=== PATIENT | female | born 1985 | race Hispanic/Latino ===

== ENCOUNTER → 2019-11-14 | Day surgery (SDC) | payer BC ==
[2019-11-10 14:56] LABS: BASOPHILS % 0.3 % (0.0-1.0); EOSINOPHILS % 0.3 % (0.0-6.0); HEMATOCRIT 37.4 % (34.2-44.1); HEMOGLOBIN 13.3 g/dL (12.0-16.0); LYMPHOCYTES # (AUTO) 0.8 (1.0-3.2); LYMPHOCYTES % 22.4 % (18.0-39.1); MEAN CORPUSCULAR HEMOGLOBIN 29.8 pg (28-32); MEAN CORPUSCULAR HGB CONC 35.6 g/dL (31-35); MEAN CORPUSCULAR VOLUME 83.9 fL (81-99); MONOCYTES # (AUTO) 0.4 (0.2-0.8); MONOCYTES % 10.3 % (4.4-11.3); NEUTROPHILS # (AUTO) 2.3 (2.1-6.9); NEUTROPHILS % 66.7 % (38.7-80.0); PLATELET COUNT 165 x10e3/uL (140-360); RED BLOOD COUNT 4.46 x10e6/uL (3.6-5.1); RED CELL DISTRIBUTION WIDTH 11.7 % (11.7-14.4)
[2019-11-10 15:14] LABS: ALANINE AMINOTRANSFERASE 42 IU/L (0-55); ALBUMIN 4.2 g/dL (3.5-5.0); ALBUMIN/GLOBULIN RATIO 1.2 (0.8-2.0); ALKALINE PHOSPHATASE 68 IU/L (40-150); ANION GAP 10.8 mmol/L (8-16); BLOOD UREA NITROGEN 9 mg/dL (7-26); BUN/CREATININE RATIO 14 (6-25); CALCIUM 9.3 mg/dL (8.4-10.2); CARBON DIOXIDE 26 mmol/L (22-29); CHLORIDE 106 mmol/L (98-107); CREATININE, SERUM 0.65 mg/dL (0.57-1.11); EST GLOMERULAR FILTRATION RATE > 60 ML/MIN (60-); GLUCOSE 83 mg/dL (74-118); POTASSIUM 3.8 mmol/L (3.5-5.1); SODIUM 139 mmol/L (136-145)
[~2019-11-14] MED LIST: AMITRIPTYLINE H50 MG PO; BUPIVACAINE HCL 0.5% INJ 30 ML VIAL INJ ONE; CEFAZOLIN SOD 1 GM/NS 50ML 100 ML IV ONE; DEXAMETHASONE SOD PHOS INJ 4 MG/ML VIAL ONE; DICLOFENAC POTA50 MG PO; ETOMIDATE 2 MG/ML 10 ML INJ IV ONE; FENTANYL CITRATE/PF 100MCG/2 ML INJ ONE; GLYCOPYRROLATE INJ 0.2 MG/ML VIAL ONE; HYDROMORPHONE 1MG/1ML INJ ONE; HYDROXYCHLOROQ200 MG PO; KETOROLAC TROMETHAMINE 30 MG/ML VIAL ONE; METOCLOPRAMIDE HCL 10 MG/2ML VIAL ONE; MIDAZOLAM HCL 2 MG/2 ML VIAL ONE; NEOSTIGMINE 1 MG/ML 10ML VIAL ONE; OMEPRAZOLE20 MG PO; ONDANSETRON HCL INJ 2MG/ML 2ML 2 MG/ML VIAL ONE; ROCURONIUM BROMIDE 10 MG/ML 5ML VIAL IV ONE; SALAGEN5 MG PO; SEVOFLURANE INHAL SOLN 250 ML PEN BTL ONE; VITAMIN D250 MC1 PO
--- OUTSIDE RECORDS SUMMARY | 2019-11-14 10:04 | XMS REPORT | Summary of Care ---
Author Author [facility] - Health Organization [facility] - Health Address Unknown Phone Unavailable Care Team Providers Care Cyber Crime Investigator Name Role Phone Jorge Alonzo PCP Reason for Visit * Reason Comments Refill Request Encounter Details Care Team Description Date Type Department Cm Enamorado MD [address] [facility] [id number] [place] [address] [phone] Refill Request 09/06/[address] [address] Allergies Comments Active Allergy Reactions Severity Noted Date Wheat Hives Medium 05/19/2019 documented as of this encounter (statuses as of 09/08/2019) Medications End Date Status Medication Sig Dispensed Refills Start Date Active levocetirizine 5 mg levocetirizin 0 tablet e 5 mg tablet Active levonorgestrel-ethinyl Kurvelo (28) 0 estradiol (KURVELO, 28,) 0.15 mg-0.03 0.15-0.03 mg per tablet mg tablet Active Diclofenac Sodium 100 mg prn 0 04/28 SR tablet 9 Active EPINEPHrine 0.3 mg/0.3 mL prn 0 injection Active AMITRIPTYLINE 25 mg TAKE 1 TABLET 30 tablet 1 08/17 tabletIndications: BY MOUTH 0 Retro-orbital pain of EVERY NIGHT both eyes, Numbness and AT BEDTIME tingling 09/08/2019 Discontinued amitriptyline 25 mg Take 1 tablet 30 tablet 2 tabletIndications: by mouth at 9 Retro-orbital pain of bedtime for both eyes, Numbness and 90 days. tingling documented as of this encounter (statuses as of 09/08/2019) Active Problems No known active problemsdocumented as of this encounter (statuses as of 09/08/2019) Social History Date Tobacco Use Types Packs/Day Years Used Never Smoker Smokeless Tobacco: Never Used Sex Assigned at Date Recorded Not on file Industry Job Start Date Occupation Not on file Not on file Not on file Travel End Travel History Travel Start No recent travel history available. documented as of this encounter Last Filed Vital Signs Not on filedocumented in this encounter Plan of Treatment Care Team Description Date Type Specialty Cm Enamorado MD [id number] [place] [address] [phone] 10/13/2019 Office Visit Neurology Health Maintenance Due Date Last Done Comments VARICELLA VACCINES (1 of 1988 2 - 2-dose childhood series) DTaP,Tdap,and Td Vaccines 1998 (1 - Tdap) PAP SMEAR 2008 INFLUENZA VACCINE (#1) 2019 PNEUMOCOCCAL 0-64 YEARS Aged Out No longer elig ible based COMBINED SERIES on patient's age to complete this topic documented as of this encounter Results Not on filedocumented in this encounter Visit Diagnoses Diagnosis Retro-orbital pain of both eyes Numbness and tingling Disturbance of skin sensation documented in this encounter Insurance Type Payer Benefit Subscriber ID Effective Phone Address Plan / Dates Group PPO/POS BCBS OF [place] BCBS OF [id number] 2017-P [phone] P [facility] [id number] OUT OF [facility] [id number] documented as of this encounter
--- OUTSIDE RECORDS SUMMARY | 2019-11-14 10:04 | XMS REPORT | Summary of Care ---
Author Author [facility] - Health Organization [facility] - Health Address Unknown Phone Unavailable Care Team Providers Care Pupil Personnel Services Director Name Role Phone Jorge Alonzo PCP Reason for Visit * Reason Comments TINGLING Encounter Details Care Team Description Date Type Department Cm Enamorado MD [address] [facility] [id number] [place] [address] [phone] Optic neuritis, left (Primary Dx); Numbness and tingling; Sicca syndrome; Retro-orbital pain of both eyes 10/13/2019 Telemedicine [facility] Neurolo gy, Visit [address] [address] Allergies Comments Active Allergy Reactions Severity Noted Date Wheat Hives Medium 05/19/2019 documented as of this encounter (statuses as of 10/13/2019) Medications End Date Status Medication Sig Dispensed Refills Start Date Active levocetirizine 5 mg levocetirizin 0 tablet e 5 mg tablet Active levonorgestrel-ethinyl Kurvelo (28) 0 estradiol (KURVELO, 28,) 0.15 mg-0.03 0.15-0.03 mg per tablet mg tablet Active Diclofenac Sodium 100 mg prn 0 04/28 SR tablet 9 Active EPINEPHrine 0.3 mg/0.3 mL prn 0 injection 04/10/2020 Active amitriptyline 50 mg Take 0.5 15 tablet 5 tabletIndications: tablets by 0 Retro-orbital pain of mouth at both eyes, Numbness and bedtime for tingling 180 days. 10/13/2019 Discontinued (Reorder) AMITRIPTYLINE 25 mg TAKE 1 TABLET 30 tablet 1 02/2 4/202 tabletIndications: BY MOUTH 0 Retro-orbital pain of EVERY NIGHT both eyes, Numbness and AT BEDTIME tingling documented as of this encounter (statuses as of 10/13/2019) Active Problems No known active problemsdocumented as of this encounter (statuses as of 10/13/2019) Social History Date Tobacco Use Types Packs/Day Years Used Never Smoker Smokeless Tobacco: Never Used Sex Assigned at Date Recorded Not on file Industry Job Start Date Occupation Not on file Not on file Not on file Travel End Travel History Travel Start No recent travel history available. documented as of this encounter Last Filed Vital Signs Not on filedocumented in this encounter Progress Notes * Cm Enamorado MD - 10/13/2019 2:00 PM CDT Visit Type: F/u clinic visit -- Telehealth Verbal consent was obtained and patient agreed with telehealth visit. Location: Patient -- home, and provider - Home PCP: Jorge Alonzo Hand Preference: right handed Consulting Physician: Dr. Brayan Vaca Chief Complaint: Paresthesia, and blurry vision HPI Patrizia Mackenzie is a 33 year old female with PMH below who presents to the in for f/u. Last seen in 06/2019. 05/2019: Patrizia Mackenzie is a 33 year old female without significant PMH who was referred to the clinic for evaluation of possible multiple sclerosis (MS). S tarting in 02/2019, she has experienced intermittent facial numbness, initially i n the let face and now it also presents in her right face (for about 1 week now) . She developed blurry vision in 03/2019, and sharp pain behind the left eye. She also c/o left arm burning sensation, and intermittent weakness. She saw Dr. Brayan Vaca in 03/2019, and Brain and Cervical spine MRI was done (04/16/2019) that did n ot show any demyelinating lesions. She saw receptionist telephone operator on 05/07/2019 ans was diagnosed with left optic neuritis. NMO, MOG and other autoimmune work-up were ordered, results are still pending. Denies dysphagia, bladder dysfunction or viola guage disturbance. Denies dry mouth, eye, joint pain or skin rashes. Her aunt an d cousin have lupus. She is , and has two children (10 and 6 year-old), and does not plan to have mor children. 06/2019 -- After her last visit, she had a spinal tap and again NMO antibody and CSF oligoclonal band panel were negative. She was recently diagnosed with lupus and Sjogren's disease, and started Plaquenil. She saw Dr. Aguilar and prescribed Diclofenac for eye pain. She has been taking it one week now and it has helped her pain if needed. Pt states that in addition to her left facial numbness , she also has right facial numbness, and more recently she began to have left arm/s houlder numbness, and then right arm and shoulder numbness. Also noticed tongue numbness started last week. Her retro-orbital pain has been worse, and it occurs almost daily now. Yesterday she had severe pain and last for several hours. She still see black spot in her left eye. Denies weakness, bladder symptoms. Since last visit, patient still has experienced intermittent facial numbness and blurry vision. The symptoms usually occurs about twice a month, and over the st one week she has increased frequency of events. Facial numbness/tingling now is located more in the right face. She was prescribed Amitriptyline, and feels i t might help her symptoms in some extent. I the past two week she also c/o right side weakness. Denies falling, ambulation difficulty etc. She saw ophthalmchoco matos in Jul 2019 and was told everything was normal except dry eyes. She went to ER last Sunday for back and rib area pain, and was diagnosed with UT I, and she was treated with three days antibiotics. She report no improvement ev en with Vicodin for her pain, and will see her PCP. She also c/o swallowing issu e, feels throat vibrating. She had endoscopy and swallowing this morning -- resu lt pending. Her last brain MRI was early 04/2019. Histories No past medical history on file. No family history on file. No family status information on file. No past surgical history on file. There is no problem list on file for this patient. Reviewed: family history , past medical history and social history Allergies Allergies Allergen Reactions Wheat Hives Medications Current Outpatient Medications Medication Sig Dispense Refill AMITRIPTYLINE 25 mg tablet TAKE 1 TABLET BY MOUTH EVERY NIGHT AT BEDTIME 30 tablet 1 Diclofenac Sodium 100 mg SR tablet prn EPINEPHrine 0.3 mg/0.3 mL injection prn levocetirizine 5 mg tablet levocetirizine 5 mg tablet levonorgestrel-ethinyl estradiol (ALEJANDRO, 28,) 0.15-0.03 mg per tablet Beka ott (28) 0.15 mg-0.03 mg tablet No current facility-administered medications for this visit. Review of Systems Constitutional: negative Eyes: blurry vision Ears: negative Nose/Sinuses: negative Mouth/Throat: negative Cardiovascular: negative Respiratory: negative Gastrointestinal: negative Genitourinary: negative Musculoskeletal: negative Integumentary: negative Psych: negative Endocrine: negative Heme/Lymph: negative Allergy/Immunization: negative Physical Exam There were no vitals taken for this visit. Level of Pain: 1. General: alert and oriented x 4 (person, place, date/time and situation); no cyrus arent distress Mental Status: normal Speech/ Language: normal Other PE are limited due to telemedicine setting Labs/Test CBC WBC (10*3/L) Date Value 05/26/2019 7.56 RBC (10*6/L) Date Value 05/26/2019 5.01 PLT (10*3/L) Date Value 05/26/2019 185 HGB (g/dL) Date Value 05/26/2019 14.9 HCT (%) Date Value 05/26/2019 42.4 BMP NA (mmol/L) Date Value 05/26/2019 139 K (mmol/L) Date Value 05/26/2019 4.0 CALCIUM (mg/dL) Date Value 05/26/2019 8.4 (L) CL (mmol/L) Date Value 05/26/2019 104 BUN (mg/dL) Date Value 05/26/2019 24 (H) CREATININE (mg/dL) Date Value 05/26/2019 0.59 GLUCOSE (mg/dL) Date Value 05/26/2019 95 CO2 TOTAL (mmol/L) Date Value 05/26/2019 28 Diagnostic Studies: EMG: None EEG: Normal by Dr. Brayan Vaca Imaging Studies: Reviewed: reports -- no lesions were found in brain and C-spine MRI Assessment/Plan Optic neuritis, left Comment: Clinically isolated syndrome. Still c/o intermittent facial numbness/ti ngling, and blurry vision. Last brain MRI was 04/2019. CSF NMO, Oligoclonal band were negative Plan: 1. Consider repeat brain MRI in 3-6 months. 2. Symptomatic treatment Sjogren's disease Comments: On Plaquenil Plan: 1. F/u with Fisheries Management Biologist 2. Plaquenil Tingling/numbness Comments: has some response to Amitriptyline 25 mg, QHS Plan: 1. Increase Amitriptyline 50 mg, QHS. RTC in 3 months This visit involved counseling and coordination of care that comprised more than 50% of the visit time. I spent 25 minute(s) total time with the patient. Of t hat time, 10 minute(s) was spent on history and exam, and 15 minute(s) was spent counseling the patient regarding risks and benefits of treatment, treatment opt ions and prevention. Description of Topics Counseled: Diagnostic criteria for MS, and CIS, and treatm ent options etc documented in this encounter Plan of Treatment Health Maintenance Due Date Last Done Comments [...] filedocumented in this encounter Visit Diagnoses Diagnosis Optic neuritis, left - Primary Optic neuritis, unspecified Numbness and tingling Disturbance of skin sensation Sicca syndrome Retro-orbital pain of both eyes documented in this encounter Insurance Type Payer Benefit Subscriber ID Effective Phone Address Plan / Dates Group PPO/POS BC[place] OF [place] BCBS OF [id number] 2017-P [phone] P [facility] [id number] OUT OF [facility] [id number] documented as of this encounter
--- OUTSIDE RECORDS SUMMARY | 2019-11-14 10:04 | XMS REPORT | Summary of Care ---
Author Author [facility] - Health Organization [facility] - Health Address Unknown Phone Unavailable Care Team Providers Care Business Applications Analyst Name Role Phone Jorge Alonzo PCP Reason for Visit * Reason Comments TINGLING Encounter Details Care Team Description Date Type Department Cm Enamorado MD [address] [facility] [id number] [place] [address] [phone] Optic neuritis, left (Primary Dx); Numbness and tingling; Sicca syndrome; Retro-orbital pain of both eyes 10/13/[address] [facility] Neurolo gy, Visit [address] [address] Allergies Comments Active Allergy Reactions [...] Visit Type: F/u clinic visit -- Telehealth PCP: Jorge Alonzo Hand Preference: right handed [...] ot show any demyelinating lesions. She saw white mixing operator on 05/07/2019 ans was diagnosed with [...] about twice a month, and over the one week she has increased frequency of [...] tablet levocetirizine 5 mg tablet levonorgestrel-ethinyl estradiol (KYRIEO, 28,) 0.15-0.03 mg per tablet Beka tru (28) 0.15 mg-0.03 mg tablet No current [...] Comments: On Plaquenil Plan: 1. F/u with Optical Instrument Repairer 2. Plaquenil Tingling/numbness Comments: has some response [...] Plan / Dates Group PPO/POS BCBS OF [place] BCBS OF [id number] 2017-P [phone] [address] [facility] [id number] OUT OF [facility] [address] [address] (Home) [place] [address] documented as of this encounter
--- OUTSIDE RECORDS SUMMARY | 2019-11-14 10:04 | XMS REPORT | Summary of Care ---
Author Author [facility] - Health Organization [facility] - Health Address Unknown Phone Unavailable Care Team Providers Care Cable Supervisor Name Role Phone Jorge Alonzo PCP Reason for Visit * Reason Comments Rx Concern/Question Encounter Details Care Team Description Date Type Department Cm Enamorado MD [address] [facility] [id number] [place] [address] [phone] Rx Concern/Question 10/16/2019 Telephone [facility], [address] [address] Allergies Comments Active Allergy Reactions Severity Noted Date Wheat Hives Medium 05/19/2019 documented as of this encounter (statuses as of 10/18/2019) Medications End Date Status Medication Sig Dispensed Refills Start Date Active levocetirizine 5 mg levocetirizin 0 tablet e 5 mg tablet Active levonorgestrel-ethinyl Kurvelo (28) 0 estradiol (KURVELO, 28,) 0.15 mg-0.03 0.15-0.03 mg per tablet mg tablet Active Diclofenac Sodium 100 mg prn 0 04/28 SR tablet 9 Active EPINEPHrine 0.3 mg/0.3 mL prn 0 injection Active amitriptyline 50 mg Take 1 tablet 30 tablet 5 tabletIndications: by mouth at 0 Retro-orbital pain of bedtime. both eyes, Numbness and tingling 10/17/2019 Discontinued (Dose adjustmen t) amitriptyline 50 mg Take 0.5 15 tablet 5 tabletIndications: tablets by 0 Retro-orbital pain of mouth at both eyes, Numbness and bedtime for tingling 180 days. 10/17/2019 Discontinued (Reorder) amitriptyline 50 mg Take 1 tablet 15 tablet 5 tabletIndications: by mouth. 0 Retro-orbital pain of both eyes, Numbness and tingling documented as of this encounter (statuses as of 10/18/2019) Active Problems No known active problemsdocumented as of this encounter (statuses as of 10/18/2019) Social History Date Tobacco Use Types Packs/Day [...] filedocumented in this encounter Plan of Treatment Health [...] PPO/POS BCBS OF [place] BCBS OF [id number] 2017-P [phone] P [address] [facility] [id number] OUT OF [facility] [id number] documented as of this encounter
--- OUTSIDE RECORDS SUMMARY | 2019-11-14 10:04 | XMS REPORT ---
Author Author [facility] t Organization [facility] Address Unknown Phone Unavailable Care Team Providers Care Hospitality Host Name Role Phone Unavailable Unavailable Payers Payer Name Policy Type Policy Number Effective Date Expiration D ate Problems This patient has no known problems. Allergies, Adverse Reactions, Alerts Allergy Name Allergy Type Status Severity Reaction(s) Onset Date Inacti ve Date Treating Clinician Comments No Known Allergies DA Active U 2019-05-25 00:00:00 No Known Allergies DA Active U 2013-06-06 00:00:00 Medications This patient has no known medications. Results Test Description Test Time Test Comments Text Results Atomic Results Result Comments - XR ESOPHAGUS 2019-10-13 12:39:00 FAX: Jorge Bridges MD [phone] [place]: St: [facility] FAX: Carroll Johnson MD [phone] Name: SHITAL APONTE [facility] : 1985 Age/S: 34/F [address] [place] [address] Unit #: [id number] Loc: [place] [address] Phys: Carroll Schumacher MD Acct: [id number] Dis Date: Status: REG CLI PHONE #: [phone] Exam Date: 10/13/2019 1041 FAX #: [phone] Reason: K59.01 CONSTIPATION, R13.10 DYSPHAGIA, K76.0 FA EXAMS: CPT CODE: [id number] XR ESOPHAGUS 60170 Patient Name: SHITAL APONTE : 1985; Age: 34 years y/o Female MR: [id number] Study: - XR ESOPHAGUS 10/13/2019 10:07 AM Ordering Physician: Carroll Schumacher MD Clinical Indication: K59.01 CONSTIPATION, R13.10 DYSPHAGIA, K76.0 FATTY LIVER Comparison: None TECHNIQUE AND FINDINGS: A routine barium esophagram was performed under fluoroscopic observation. Multiple spot images were obtained. Fluoroscopy time: 1.3 minutes Reference air kerma: 23.6 mGy Limitations: None. OROPHARYNX AND SWALLOWING: Morphology: Normal base of tongue, valleculae, and piriform sinuses. Swallowing: Normally initiated. Laryngeal penetration/aspiration: None. Pharyngoesophageal junction: Normal in appearance without narrowing or diverticulum. ESOPHAGUS: Morphology: Normal in course and caliber. Motility: Normal primary and secondary peristaltic waves. Mucosa: Normal without thickening, irregularity, or ulcer. Esophagogastric junction: Normal. Gastroesophageal reflux: Trace into distal third of the esophagus. STOMACH: Morphology: Normal degree of distention and shape. Mucosa: Normal appearing rugal folds. Gastroduodenal junction: Normal appearing pyloric channel without delayed emptying. IMPRESSION: PAGE 1 Signed Report (CONTINUED) FAX: Jorge Bridges MD [phone] [place]: St: REG FAX: Carroll Johnson MD [phone] Name: SHITAL APONTE [facility] : 1985 Age/S: 34/F [address] [place] [address] Unit #: [id number] Loc: [place] [address] Phys: Carroll Schumacher MD Acct: [id number] Dis Date: Status: REG CLI PHONE #: [phone] Exam Date: 10/13/2019 1041 FAX #: [phone] Reason: K59.01 CONSTIPATION, R13.10 DYSPHAGIA, K76.0 FA EXAMS: CPT CODE: [id number] XR ESOPHAGUS 06283 <Continued> Minimal gastroesophageal reflux. Otherwise, normal barium esophagram SL: [id number] at 1239 Reported and signed by: Gómez Bacon M.D. CC: Jorge Alonzo M.D.; Carroll Schumacher MD Technologist: RT Alfredo(R) Trnscrd Date/Time/By: 10/13/2019 (9043) : By: [email or web address] Orig Print D/T: S: 10/13/2019 (6567) PAGE 2 Signed Report - CT ABD PELVIS W/O CONT 2019-10-10 21:57:00 N jay: SHITAL APONTE [facility] : 1985 Age/S: 34 / F [address] [place] [address] Unit #: [id number] Loc: [place] [address] Phys: Mayra Yip MD Acct: [id number] Dis Date: Status: REG ER PHONE #: [phone] Exam Date: 10/10/2019 2130 FAX #: [phone] Reason: ACUTE R FLANK PAIN EXAMS: CPT CODE: [id number] CT ABD PELVIS W/O CONT 98721 CT abdomen and pelvis without contrast dated 10/10/2019 INDICATION: Acute right flank pain. COMPARISON: CT abdomen dated 05/25/2019. TECHNIQUE: A CT of the abdomen pelvis was performed using helical images from the thoracic outlet through the pubic symphysis with subsequent sagittal and coronal reconstruction. IV CONTRAST: None. GI CONTRAST: None. CT imaging performed at this location utilizes radiation dose optimizati on techniques which include one or more of the followin) Automated exposure control; 2) Adjustment of mA and/or kV; 3) Use of iterative reconstructive technique. CT radiation dose DLP (mGy-cm): 513. FINDINGS: SOLID ORGANS: There is no CT evidence of acute renal collecting system obstruction. No calcified renal or ureteral stones are identified. The kidneys are normal in size and contour. No acute edema or inflammation is identified in the perinephric fat. No acute CT abnormalities of the liver, spleen, pancreas or adrenal glands are identified. The low-density lesion visualized in the lateral segment of the left lobe of the liver on the CT of 05/25/2019 is not as well visualized without contrast however appears grossly stable in size. BILIARY: The gallbladder is normally distended. No significant biliary ductal dilatation is identified. BOWEL: Bowel assessment is limited by the absence of bowel contrast. No gross abnormalities of the stomach or duodenum are identified. No small bowel dilatation is present to suggest obstruction. The appendix is identified and is not acutely inflamed. There is no evidence of diverticular disease or inflammatory colonic wall thickening. PERITONEUM: There is no evidence of free intraperitoneal air or significant free intraperitoneal fluid. PAGE 1 Signed Report (CONTINUED) Name: SHITAL APONTE [facility] : 1985 Age/S: 34 / F [address] [place] [address] Unit #: [id number] Loc: [place] [address] Phys: Mayra Yip MD Acct: [id number] Dis Date: Status: REG ER PHONE #: [phone] Exam Date: 10/10/2019 213 FAX #: [phone] Reason: ACUTE R FLANK PAIN EXAMS: CPT CODE: [id number] CT ABD PELVIS W/O CONT 40757 <Continued> RETROPERITONEUM: The abdominal aorta is normal in caliber. The circumscribed fluid density structure in the aortocaval retroperitoneum at the L1-2 disc interspace level is of unclear etiology however appears stable when compared the preceding study. There is no additional evidence of retroperitoneal mass or adenopathy. PELVIS: No abnormalities of the ovaries or adnexa are identified. The bladder has an unremarkable appearance. LOWER CHEST: The lung bases appear clear of acute disease. ADDITIONAL FINDINGS: None. IMPRESSION: 1. No acute CT abnormalities of the abdomen or pelvis are detected. SL: 131 at 2156 Reported and signed by: Tapan Obrien M.D. CC: Mayra Yip MD; Jorge Alonzo M.D. Technologist:Quyen King RT(R) CTDI: DLP: Trnscb Date/Time: 10/10/2019 (2156) [email or web address] Orig Print D/T: S: 10/10/2019 (2199) PAGE 2 Signed Report UR HCG QUAL 2019-10-10 20:48:00 UR HCG QUAL (test code = HCGQLU) NEGATIVE NEGATIVE COMPREHENSIVE METABOLIC [id number] 20:47:00* Test Item Value Reference Range Comments SODIUM (test code = NA) 139 mEq/L 134-147 POTASSIUM (test code = K) 3.5 mEq/L 3.4-5.0 CHLORIDE (test code = CL) 107 mEq/L 100-108 CARBON DIOXIDE (test code = CO2) 28 mEq/L 21-33 ANION GAP (test code = GAP) 8 0-20 GLUCOSE (test code = GLU) 89 mg/dL 70-110 BLOOD UREA NITROGEN (test code = BUN) 17 mg/dL 7-18 GLOMERULAR FILTRATION RATE (test code = GFR) 97.0 105 -110 Units of measure = ml/min/1.73 m2 CREATININE (test code = CREAT) 0.7 mg/dL 0.6-1.3 TOTAL PROTEIN (test code = PROT) 8.0 g/dL 6.4-8.2 ALBUMIN (test code = ALB) 3.80 g/dL 3.4-5.0 CALCIUM (test code = CA) 9.1 mg/dL 8.0-10.5 BILIRUBIN TOTAL (test code = BILT) 0.3 MG/DL <1.5 SGOT/AST (test code = AST) 28 IUnit/L 15-37 SGPT/ALT (test code = ALT) 45 IUnit/L 15-65 ALKALINE PHOSPHATASE TOTAL (test code = ALKP) 72 IUnit/L 20 -125 [id number] 20:47:00* Test Item Value Reference Range Comments LIPASE (test code = LIP) 243 IUnit/L 73-393 COMPREHENSIVE METABOLIC [id number] 20:41:00* Test Item Value Reference Range Comments SODIUM (test code = NA) 139 mEq/L 134-147 POTASSIUM (test code = K) 3.5 mEq/L 3.4-5.0 CHLORIDE (test code = CL) 107 mEq/L 100-108 CARBON DIOXIDE (test code = CO2) 28 mEq/L 21-33 ANION GAP (test code = GAP) 8 0-20 GLUCOSE (test code = GLU) 89 mg/dL 70-110 BLOOD UREA NITROGEN (test code = BUN) 17 mg/dL 7-18 GLOMERULAR FILTRATION RATE (test code = GFR) 105 -110 CREATININE (test code = CREAT) mg/dL 0.6-1.3 TOTAL PROTEIN (test code = PROT) g/dL 6.4-8.2 ALBUMIN (test code = ALB) g/dL 3.4-5.0 CALCIUM (test code = CA) 9.1 mg/dL 8.0-10.5 BILIRUBIN TOTAL (test code = BILT) MG/DL <1.5 SGOT/AST (test code = AST) IUnit/L 15-37 SGPT/ALT (test code = ALT) IUnit/L 15-65 ALKALINE PHOSPHATASE TOTAL (test code = ALKP) IUnit/L 20 -125 [id number] 20:41:00* Test Item Value Reference Range Comments LIPASE (test code = LIP) 243 IUnit/L 73-393 CBC W/AUTO [id number] 20:32:00* Test Item Value Reference Range Comments WHITE BLOOD CELL (test code = WBC) 3.27 x10 3/uL 4.5-11.0 RED BLOOD CELL (test code = RBC) 4.55 x10 6/uL 3.54-5.02 HEMOGLOBIN (test code = HGB) 13.7 g/dL 11.0-15.0 HEMATOCRIT (test code = HCT) 39.0 % 33.0-45.0 MEAN CELL VOLUME (test code = MCV) 85.7 fL 81.0-99.0 MEAN CELL HGB (test code = MCH) 30.1 pg 27.0-33.0 MEAN CELL HGB CONCETRATION (test code = MCHC) 35.1 g/dL 33 .0-37.0 RED CELL DISTRIBUTION WIDTH CV (test code = RDW) 11.9 % 11.5-14.5 RED CELL DISTRIBUTION WIDTH SD (test code = RDW-SD) 37.4 fL 37.0-54.0 PLATELET COUNT (test code = PLT) 162 x10 3/uL 150-400 MEAN PLATELET VOLUME (test code = MPV) 11.2 fL 7.0-9.0 NEUTROPHIL % (test code = NT%) 61.2 % 56.0-77.0 IMMATURE GRANULOCYTE % (test code = IG%) 0.0 % 0.0-2.0 LYMPHOCYTE % (test code = LY%) 27.5 % 14.0-32.0 MONOCYTE % (test code = MO%) 10.7 % 4.8-9.0 EOSINOPHIL % (test code = EO%) 0.3 % 0.3-3.7 BASOPHIL % (test code = BA%) 0.3 % 0.0-2.0 NUCLEATED RBC % (test code = NRBC%) 0.0 % 0-0 NEUTROPHIL # (test code = NT#) 2.00 x10 3/uL 2.0-7.6 IMMATURE GRANULOCYTE # (test code = IG#) 0.00 x10 3/uL 0.00-0. 03 LYMPHOCYTE # (test code = LY#) 0.90 x10 3/uL 1.0-3.8 MONOCYTE # (test code = MO#) 0.35 x10 3/uL 0.1-0.8 EOSINOPHIL # (test code = EO#) 0.01 x10 3/uL 0.0-0.2 BASOPHIL # (test code = BA#) 0.01 x10 3/uL 0.0-0.2 NUCLEATED RBC # (test code = NRBC#) 0.00 x10 3/uL 0.0-0.1 MANUAL DIFF REQUIRED (test code = MDIFF) NO UA RFLX MICR CULT IF [id number] 19:34:00* Test Item Value Reference Range Comments UA COLOR (test code = COLU) YELLOW YEL/STRAW UA APPEARANCE (test code = APPU) CLEAR CLEAR UA GLUCOSE DIPSTICK (test code = DGLUU) NEGATIVE NEGATIVE UA BILIRUBIN DIPSTICK (test code = BILU) NEGATIVE NEGATIV E UA KETONE DIPSTICK (test code = KETU) NEGATIVE NEGATIVE UA SPECIFIC GRAVITY (test code = SGU) 1.009 1.005-1.03 0 UA BLOOD DIPSTICK (test code = ASHLEY) NEGATIVE NEGATIVE UA PH DIPSTICK (test code = CHEO) 7.0 5.0-7.0 UA PROTEIN DIPSTICK (test code = PROU) NEGATIVE NEGATIVE UA UROBILINIOGEN DIPSTICK (test code = URO) 0.2 mg/dL 0.2- 1.0 UA NITRITE DIPSTICK (test code = HARSHA) NEGATIVE NEGATIVE UA LEUKOCYTE ESTERASE DIPSTICK (test code = LEUU) TRACE NEGATIVE UA WBC (test code = WBCU) 4-9 WBC/HPF 0-3 UA RBC (test code = RBCU) 0-3 RBC/HPF 0-3 UA WBC NO REFLEX (test code = WBCUCL) 4-9 WBC/HPF 0-3 UA BACTERIA (test code = BACU) TRACE /HPF NONE SEEN UA SQUAMOUS CELLS (test code = SQU) 0-5 /HPF NONE SEEN UA MUCUS (test code = MUCU) TRACE /LPF NONE SEEN Indication for culture: Dysuria/FrequencySpecimen Description: CLEAN CATCH- CT ABD PELVIS [id number] 10:08:00 Name: SHITAL APONTE [facility] : 1985 Age/S: 33 / F [address] [place] [address] Unit #: [id number] Loc: [place] [address] Phys: Lula Sahni DO Acct: [id number] Dis Date: Status: REG ER PHONE #: [phone] Exam Date: 05/25/2019 0951 FAX #: [phone] Reason: LUQ abdominal pain EXAMS: CPT CODE: [id number] CT ABD PELVIS W/CONT [address] with contrast: Multiplanar helical imaging acquired from the diaphragm through the symphysis pubis using IV injection 100 cc Isovue-300. No oral contrast. CT imaging performed at this location utilizes radiation dose optimization techniques which include one or more of the following: -Automated exposure control -Adjustment of the mA and/or kV according to patient size -Use of iterative reconstruction technique CT Radiation Dose DLP 262 mGy-cm COMPARISON: 03/17/2013. HISTORY: Nausea and vomiting, diarrhea and fever, left upper quadrant abdominal pain FINDINGS: Bilateral breast implants are again noted. Minor left lung base atelectasis. Slightly decreased density in the liver suggesting fatty infiltration. In the dome of the liver left hepatic lobe there is a 11 mm low-density lesion that has an area of nodular peripheral enhancement likely an incidental hemangioma. No other focal lesion. Biliary ducts, gallbladder, spleen, pancreas and adrenal glands unremarkable. The a bdominal aorta is normal caliber without an aneurysm. The kidneys symmetri anup enhance without mass or hydronephrosis. Uterus, bladde r and adnexal structures are unremarkable. Large and small bowel loops are normal caliber. No bowel obstruction or inflamed segments. No evidence of diverticulitis or appendicitis. No fluid collections. No ventral or ingui nal hernia. Review on bone window shows no acute bony pathology. N o vertebral compression. IMPRESSION: 1. Mild fatty infiltration of liver with probable incidental left hepatic lobe gisella ioma. 2. No acute abnormality in the abdomen or pelvis. SL: [id number] PAGE 1 Sign ed Report (CONTINUED) Name: SHITAL APONTE [facility] : 1985 Age/S: 33 / F [address] [place] [address] Unit #: [id number] Loc: [place] [address] Phys: Lula Sahni DO Acct: [id number] Dis Date: Status: REG ER PHONE #: [phone] Exam Date: 05/25/2019 0951 FAX #: [phone] Reason: LUQ abdominal pain EXAMS: CPT CODE: [id number] CT ABD PELVIS W/CONT 16301 <Continued> at 1008 Reported and signed by: Juju Turcios M.D. CC: Lula Sahni DO; Jorge Alonzo M.D. Technologist:RT Luis Antonio(R)(CT) CTDI: DLP: Trnscb Date/Time: 05/25/2019 (1008) [email or web address] Orig Print D/T: S: 05/25/2019 (1011) PAGE 2 Signed Report UA RFLX MICR CULT IF INDICATED 2019-05-25 09:35:00* Test Item Value Reference Range Comments UA COLOR (test code = COLU) YELLOW YEL/STRAW UA APPEARANCE (test code = APPU) CLEAR CLEAR UA GLUCOSE DIPSTICK (test code = DGLUU) NEGATIVE NEGATIVE UA BILIRUBIN DIPSTICK (test code = BILU) NEGATIVE NEGATIV E UA KETONE DIPSTICK (test code = KETU) NEGATIVE NEGATIVE UA SPECIFIC GRAVITY (test code = SGU) 1.019 1.005-1.03 0 UA BLOOD DIPSTICK (test code = ASHLEY) NEGATIVE NEGATIVE UA PH DIPSTICK (test code = CHEO) 7.0 5.0-7.0 UA PROTEIN DIPSTICK (test code = PROU) NEGATIVE NEGATIVE UA UROBILINIOGEN DIPSTICK (test code = URO) 0.2 mg/dL 0.2- 1.0 UA NITRITE DIPSTICK (test code = HARSHA) NEGATIVE NEGATIVE UA LEUKOCYTE ESTERASE DIPSTICK (test code = LEUU) NEGATIVE NEGATIVE UA WBC (test code = WBCU) 0-3 WBC/HPF 0-3 UA RBC (test code = RBCU) 0-3 RBC/HPF 0-3 UA WBC NO REFLEX (test code = WBCUCL) 0-3 WBC/HPF 0-3 UA BACTERIA (test code = BACU) TRACE /HPF NONE SEEN UA SQUAMOUS CELLS (test code = SQU) 0-5 /HPF NONE SEEN UA MUCUS (test code = MUCU) TRACE /LPF NONE SEEN Indication for culture: Suprapubic PainSpecimen Description: CLEAN CATCH COMPREHENSIVE METABOLIC [id number] 08:44:00* Test Item Value Reference Range Comments SODIUM (test code = NA) 139 mEq/L 134-147 POTASSIUM (test code = K) 3.8 mEq/L 3.4-5.0 CHLORIDE (test code = CL) 105 mEq/L 100-108 CARBON DIOXIDE (test code = CO2) 25 mEq/L 21-33 ANION GAP (test code = GAP) 13 0-20 GLUCOSE (test code = GLU) 124 mg/dL 70-110 BLOOD UREA NITROGEN (test code = BUN) 20 mg/dL 7-18 GLOMERULAR FILTRATION RATE (test code = GFR) 97.6 105 -110 Units of measure = ml/min/1.73 m2 CREATININE (test code = CREAT) 0.7 mg/dL 0.6-1.3 TOTAL PROTEIN (test code = PROT) 7.3 g/dL 6.4-8.2 ALBUMIN (test code = ALB) 3.10 g/dL 3.4-5.0 CALCIUM (test code = CA) 8.5 mg/dL 8.0-10.5 BILIRUBIN TOTAL (test code = BILT) 0.6 MG/DL <1.5 SGOT/AST (test code = AST) 7 IUnit/L 15-37 SGPT/ALT (test code = ALT) 21 IUnit/L 15-65 ALKALINE PHOSPHATASE TOTAL (test code = ALKP) 47 IUnit/L 20 -125 [id number] 08:44:00* Test Item Value Reference Range Comments LIPASE (test code = LIP) 162 IUnit/L 73-393 HCG SERUM [id number] 08:44:00* Test Item Value Reference Range Comments HCG SERUM QUAL (test code = HCGQL) SERUM NEGATIVE NEGATIVE COMPREHENSIVE METABOLIC [id number] 08:39:00* Test Item Value Reference Range Comments SODIUM (test code = NA) 139 mEq/L 134-147 POTASSIUM (test code = K) 3.8 mEq/L 3.4-5.0 CHLORIDE (test code = CL) 105 mEq/L 100-108 CARBON DIOXIDE (test code = CO2) 25 mEq/L 21-33 ANION GAP (test code = GAP) 13 0-20 GLUCOSE (test code = GLU) 124 mg/dL 70-110 BLOOD UREA NITROGEN (test code = BUN) 20 mg/dL 7-18 GLOMERULAR FILTRATION RATE (test code = GFR) 105 -110 CREATININE (test code = CREAT) mg/dL 0.6-1.3 TOTAL PROTEIN (test code = PROT) g/dL 6.4-8.2 ALBUMIN (test code = ALB) g/dL 3.4-5.0 CALCIUM (test code = CA) 8.5 mg/dL 8.0-10.5 BILIRUBIN TOTAL (test code = BILT) MG/DL <1.5 SGOT/AST (test code = AST) IUnit/L 15-37 SGPT/ALT (test code = ALT) IUnit/L 15-65 ALKALINE PHOSPHATASE TOTAL (test code = ALKP) IUnit/L 20 -125 [id number] 08:39:00* Test Item Value Reference Range Comments LIPASE (test code = LIP) 162 IUnit/L 73-393 HCG SERUM [id number] 08:39:00* Test Item Value Reference Range Comments HCG SERUM QUAL (test code = HCGQL) SERUM NEGATIVE NEGATIVE COMPREHENSIVE METABOLIC [id number] 08:38:00* Test Item Value Reference Range Comments SODIUM (test code = NA) 139 mEq/L 134-147 POTASSIUM (test code = K) 3.8 mEq/L 3.4-5.0 CHLORIDE (test code = CL) 105 mEq/L 100-108 CARBON DIOXIDE (test code = CO2) 25 mEq/L 21-33 ANION GAP (test code = GAP) 13 0-20 GLUCOSE (test code = GLU) 124 mg/dL 70-110 BLOOD UREA NITROGEN (test code = BUN) 20 mg/dL 7-18 GLOMERULAR FILTRATION RATE (test code = GFR) 105 -110 CREATININE (test code = CREAT) mg/dL 0.6-1.3 TOTAL PROTEIN (test code = PROT) g/dL 6.4-8.2 ALBUMIN (test code = ALB) g/dL 3.4-5.0 CALCIUM (test code = CA) 8.5 mg/dL 8.0-10.5 BILIRUBIN TOTAL (test code = BILT) MG/DL <1.5 SGOT/AST (test code = AST) IUnit/L 15-37 SGPT/ALT (test code = ALT) IUnit/L 15-65 ALKALINE PHOSPHATASE TOTAL (test code = ALKP) IUnit/L 20 -125 [id number] 08:38:00* Test Item Value Reference Range Comments LIPASE (test code = LIP) 162 IUnit/L 73-393 HCG SERUM [id number] 08:38:00* Test Item Value Reference Range Comments HCG SERUM QUAL (test code = HCGQL) NEGATIVE COMPREHENSIVE METABOLIC [id number] 08:34:00* Test Item Value Reference Range Comments SODIUM (test code = NA) 139 mEq/L 134-147 POTASSIUM (test code = K) 3.8 mEq/L 3.4-5.0 CHLORIDE (test code = CL) 105 mEq/L 100-108 CARBON DIOXIDE (test code = CO2) mEq/L 21-33 ANION GAP (test code = GAP) 0-20 GLUCOSE (test code = GLU) mg/dL 70-110 BLOOD UREA NITROGEN (test code = BUN) mg/dL 7-18 GLOMERULAR FILTRATION RATE (test code = GFR) 105 -110 CREATININE (test code = CREAT) mg/dL 0.6-1.3 TOTAL PROTEIN (test code = PROT) g/dL 6.4-8.2 ALBUMIN (test code = ALB) g/dL 3.4-5.0 CALCIUM (test code = CA) mg/dL 8.0-10.5 BILIRUBIN TOTAL (test code = BILT) MG/DL <1.5 SGOT/AST (test code = AST) IUnit/L 15-37 SGPT/ALT (test code = ALT) IUnit/L 15-65 ALKALINE PHOSPHATASE TOTAL (test code = ALKP) IUnit/L 20 -125 [id number] 08:34:00* Test Item Value Reference Range Comments LIPASE (test code = LIP) IUnit/L 73-393 HCG SERUM [id number] 08:34:00* Test Item Value Reference Range Comments HCG SERUM QUAL (test code = HCGQL) NEGATIVE CBC W/AUTO [id number] 08:32:00* Test Item Value Reference Range Comments WHITE BLOOD CELL (test code = WBC) 3.66 x10 3/uL 4.5-11.0 RED BLOOD CELL (test code = RBC) 4.38 x10 6/uL 3.54-5.02 HEMOGLOBIN (test code = HGB) 13.2 g/dL 11.0-15.0 HEMATOCRIT (test code = HCT) 37.1 % 33.0-45.0 MEAN CELL VOLUME (test code = MCV) 84.7 fL 81.0-99.0 MEAN CELL HGB (test code = MCH) 30.1 pg 27.0-33.0 MEAN CELL HGB CONCETRATION (test code = MCHC) 35.6 g/dL 33 .0-37.0 RED CELL DISTRIBUTION WIDTH CV (test code = RDW) 11.6 % 11.5-14.5 RED CELL DISTRIBUTION WIDTH SD (test code = RDW-SD) 35.6 fL 37.0-54.0 PLATELET COUNT (test code = PLT) 173 x10 3/uL 150-400 MEAN PLATELET VOLUME (test code = MPV) 11.4 fL 7.0-9.0 NEUTROPHIL % (test code = NT%) 81.2 % 56.0-77.0 IMMATURE GRANULOCYTE % (test code = IG%) 0.5 % 0.0-2.0 LYMPHOCYTE % (test code = LY%) 15.3 % 14.0-32.0 MONOCYTE % (test code = MO%) 3.0 % 4.8-9.0 EOSINOPHIL % (test code = EO%) 0.0 % 0.3-3.7 BASOPHIL % (test code = BA%) 0.0 % 0.0-2.0 NUCLEATED RBC % (test code = NRBC%) 0.0 % 0-0 NEUTROPHIL # (test code = NT#) 2.97 x10 3/uL 2.0-7.6 IMMATURE GRANULOCYTE # (test code = IG#) 0.02 x10 3/uL 0.00-0. 03 LYMPHOCYTE # (test code = LY#) 0.56 x10 3/uL 1.0-3.8 MONOCYTE # (test code = MO#) 0.11 x10 3/uL 0.1-0.8 EOSINOPHIL # (test code = EO#) 0.00 x10 3/uL 0.0-0.2 BASOPHIL # (test code = BA#) 0.00 x10 3/uL 0.0-0.2 NUCLEATED RBC # (test code = NRBC#) 0.00 x10 3/uL 0.0-0.1 MANUAL DIFF REQUIRED (test code = MDIFF) NO - MRI C-SPINE W W/O [id number] 21:49:00 FAX: Edvin Mi MD [phone] [place]: St: [facility] FAX: Jorge Bridges MD [phone] Name: SHITAL APONTE [facility] : 1985 Age/S: 33/F [address] [place] [address] Unit #: [id number] Loc: [place] [address] Phys: Edvin Leonard MD Acct: [id number] Dis Date: Status: REG CLI PHONE #: [phone] Exam Date: 04/16/20192109 FAX #: [phone] Reason: MS EXAMS: CPT CODE: [id number] MRI C-SPINE W W/O CONT 67043 Patient Name: SHITAL APONTE : 1985; Age: 33 years y/o Female MR: [id number] Study: - MRI C-SPINE W W/O CONT 04/16/2019 5:29 PM Ordering Physician: MD Renita Randall linical Indication: Left facial weakness and left extremity pain MS Compar shane: None TECHNIQUE: Multiplanar T1, T2, STIR weighted and postco ntrast MRI of the cervical spine is performed on the 1.5 Tanya magnet. Contrast: Dotarem 13 mL FINDINGS: ALIGN MENT AND GENERAL ASSESSMENT: Straightening of the normal cervical lordosis may be positional in nature. Mildly degenerated discs within the ce rvical spine. No abnormal enhancement. DISC SPACES: C2-C3:No significant disc protrusion, spinal canal narrowing, or suresh ral foraminal narrowing. C3-C4: No significant disc protrusion, sp inal canal narrowing, or neural foraminal narrowing. C4-C5: No significant disc protrusion, spinal canal narrowing, or neural foramina l narrowing. C5-C6: No significant disc protrusion, spinal canal n arrowing, or neural foraminal narrowing. C6-C7:No significan t disc protrusion, spinal canal narrowing, or neural foraminal narrowing. C7-T1: No significant disc protrusion, spinal canal narrowing, or neural foraminal narrowing. PAGE 1 Signed Report (CONTINUED) FAX: Edvin Mi MD [phone] [place]: St: REG FAX: Jorge Bridges MD -------- Name: SHITAL APONTE [facility] [place] : 1985 Age/S: 33/F [address] [place] [address] Unit #: [id number] Loc: [place] [address] Phys: Edvin Leonard MD Acct: [id number] Dis Date: Status: REG CLI CEFERINO NE #: [phone] Exam Date: 04/16/20192109 FAX #: [phone] Reason: MS Gonzalez XAMS: CPT CODE: [id number] MRI C-SPINE W W/O CONT 49469 <Continued> IMPRESSION: Negative MRI of the cervical spine. SL: AP-H at 2148 Reported and signed by: Gómez Bacon M.D. CC: Edvin Vaca MD; Jorge Alonzo M.D. Technologist: MADELINE Hernadez)(MRI) Trnscrd Date/Time/By: 04/16/2019 (2148) : By: [email or web address] Orig Print D/T: S: 04/16/2019 (2151) PAGE 2 Signed Report - MRI BRAIN WO/W [id number] 21:41:00 FAX: Edvin Mi MD [phone] [place]: St: REG FAX: Jorge Bridges MD [phone] Name: SHITAL APONTE [facility] [place] : 1985 Age/S: 33/F [address] [place] [address] Unit #: [id number] Loc: [place] [address] Phys: Edvin Leonard MD Acct: [id number] Dis Date: Status: REG CLI PHONE #: [phone] Exam Date: 04/16/20192109 FAX #: [phone] Reason: MS EXAMS: CPT CODE: [id number] MRI BRAIN WO/W CONT 81532 Study: - MRI BRAIN WO/W CONT 04/16/2019 5:29 PM Moi lyons Name: SHITAL APONTE MR: [id number] : 1985; Age: 33 years y/o Female Ordering Physician: Edvin Vaca MD Clinical I ndication: Left facial numbness, left extremity pain and blurred vision MS Comparison: None TECHNIQUE: TECHNIQUE: Multiplanar precontrast and postcontrast MRI of the brain was performed on a 1.5 Tanya magnet. Contrast: Dotarem 13 mL FINDINGS: BRAIN PARENCHYMA: General: The brain volume and ventricle size are appropriate for age. Ventricles: Normal size and appearance. Enhancement: No abnormal enhancement. Acute Findings: No evidence of acute intracranial hemorrhage, mass, mass effect, midline shift, or extra-axial fluid collection. Diffusion Weighted Images: No evidence of restricted diffusion to suggest acute or subacute ischemia. Gradient Images: No abnormal hypointense signal to suggest old hemorrhage. Midline Structures: The pituitary gland, corpus callosum, and remaining midline structures are normal. VASCULATURE: Arterial: The major intracranial arterial flow voids are p resent. Venous: The dural venous sinus flow voids are grossly normal. PARANASAL SINUSES: The visualized portions of the paranasal sinuses PAGE 1 Signed Report (CONTINUED) FAX: Edvin Mi MD [phone] [place]: St: REG FAX: Jorge Bridges MD [phone] Name: SHITAL APONTE [facility] : 1985 Age/S: 33/F [address] Unit #: [id number] Loc: G.MRI [place], [place] [address]98 Phys: Edvin Leonard MD Acct: [id number] Dis Date: Status: REG CLI PHONE #: [phone] Exam Date: 04/16/20192109 FAX #: [phone] Reason: MS EXAMS: CPT CODE: [id number] MRI BRAIN WO/W CONT 19475 <Continued> are clear. MASTOIDS: Clear. SOFT TISSUES AND ORBITS: Multiple tiny cysts in the bilateral parotid glands are nonspecific. Otherwise, the visualized portions are normal. IMPRESSION: 1. No acute stroke, hemorrhage, mass, or mass effect. No intracranial demyelinating plaques to suggest multiple sclerosis 2. Nonspecific cystic changes in the bilateral parotid glands. SL: RAFAELA at 2140 Reported and signed by: Gómez Bacon M.D. CC: Edvin Vaca MD; Jorge Alonzo M.D. Technologist: RT Maricarmen(R)(MRI) Trnscrd Date/Time/By: 04/16/2019 (2140) : By: [email or web address] Orig Print D/T: S: 04/16/2019 (2143) PAGE 2 Signed Report
[2019-11-14 15:15] VITALS: BP 130/88
--- NOTE | 2019-11-14 20:50 | Operative Report ---
DATE OF PROCEDURE: 11/14/2019 SURGEON: Jorge Coelho MD PREOPERATIVE DIAGNOSIS: Chronic cholecystitis. POSTOPERATIVE DIAGNOSIS: Chronic cholecystitis. PROCEDURES: Diagnostic laparoscopy, laparoscopic cholecystectomy. ACOUSTICAL LOGGING ENGINEER: None. ANESTHESIA: General endotracheal. INDICATIONS AND FINDINGS: The patient is a 34-year-old female who presented with recurrent episodes of right upper quadrant abdominal pain. Workup revealed abnormal HIDA scan, low ejection fraction of 25%, and reproduction of her pain. Surgery based on the gallbladder with changes of cholesterolosis. Cystic duct was about 2 mm in diameter, common bile duct was about 5 mm in diameter. Liver, stomach, lower abdomen all appeared normal. TECHNIQUE: After adequate general endotracheal anesthesia, the patient in supine position, the abdomen was prepped and draped in sterile fashion with ChloraPrep solution. Skin just below the umbilicus was infiltrated with 0.5% Marcaine. Incision was made, abdominal wall was elevated, and Veress needle was introduced. Pneumoperitoneum was then created. A 10 mm trocar and cannula was then passed through this wound. Laparoscopic camera was introduced. Initial laparoscopy revealed liver, stomach, and lower abdomen all appeared normal. A 10 mm trocar and cannula was placed in the epigastrium, and two 5 mm trocars and cannulas were placed in right upper quadrant. These were placed under direct vision. Fundus of the gallbladder was grasped, retracted superiorly. Neck of the gallbladder was grasped, retracted laterally. The peritoneum over the neck of the gallbladder was incised. The gallbladder and cystic duct junction was dissected free. Cystic artery was also dissected free. The neck of the gallbladder was completely dissected free. Cystic artery was divided between hemoclips close to the gallbladder. Cystic duct was also divided between hemoclips with three clips being left on the common bile duct side. There was a posterior branch of cystic artery, which was also divided between hemoclips. The gallbladder was dissected free from the liver using scissors and electrocautery. Once it was entirely free, it was placed into an Endopouch and brought through the epigastric cannula. There were no stones palpable. Gallbladder bed was inspected for hemostasis, which was seen to be adequate. It was irrigated with saline. All fluid aspirated and inspected once again for hemostasis, which was seen to be adequate. Instruments and cannulas were then removed. Pneumoperitoneum was evacuated. Wounds were then closed. Fascia in the umbilical and epigastric wound closed with 0 Vicryl. Skin to all wounds closed with brian. Sterile dressings applied to each wound. The patient tolerated the procedure well. Estimated blood loss was 10 mL. There were no complications. All counts were correct. The patient was taken to the recovery room in satisfactory condition. MD NOLAN Mann/NEEMA /[id number] cc: Jorge Alonzo
== END | disposition home or self-care (01) ==
LOC: OR 09:50
PROVIDERS: ATTEND Surgery
DX: K81.1 Chronic cholecystitis (principal); R59.1 Generalized enlarged lymph nodes; M32.9 Systemic lupus erythematosus, unspecified; Z01.812 Encounter for preprocedural laboratory examination; Z11.59 Encounter for screening for other viral diseases
CPT/HCPCS: 36415; 47562; 80053; 81025; 84702; 85025; 87635; 88304; J0690; J1100; J1170; J1885; J2250; J2405; J2710; J2765; J3010

== ENCOUNTER 2020-09-06 12:12 | Emergency (ER) | payer BC ==
[~2020-09-06] VITALS: Ht 154.9 cm; Wt 66.7 kg
[~2020-09-06 12:12] MED LIST changes: -BUPIVACAINE HCL 0.5% INJ 30 ML VIAL INJ ONE; -CEFAZOLIN SOD 1 GM/NS 50ML 100 ML IV ONE; -DEXAMETHASONE SOD PHOS INJ 4 MG/ML VIAL ONE; -ETOMIDATE 2 MG/ML 10 ML INJ IV ONE; -FENTANYL CITRATE/PF 100MCG/2 ML INJ ONE; -GLYCOPYRROLATE INJ 0.2 MG/ML VIAL ONE; -HYDROMORPHONE 1MG/1ML INJ ONE; -KETOROLAC TROMETHAMINE 30 MG/ML VIAL ONE; -METOCLOPRAMIDE HCL 10 MG/2ML VIAL ONE; -MIDAZOLAM HCL 2 MG/2 ML VIAL ONE; -NEOSTIGMINE 1 MG/ML 10ML VIAL ONE; -ONDANSETRON HCL INJ 2MG/ML 2ML 2 MG/ML VIAL ONE; -ROCURONIUM BROMIDE 10 MG/ML 5ML VIAL IV ONE; -SEVOFLURANE INHAL SOLN 250 ML PEN BTL ONE
[2020-09-06] MEDS ORDERED: CYMBALTA30 MG PO (12:27)
[2020-09-06] MEDS ORDERED: ONDANSETRON HCL INJ 2MG/ML 2ML 2 MG/ML VIAL IV STA (12:29)
[2020-09-06] MEDS ORDERED: SODIUM CHLORIDE 0.9% 1000ML 1,000 ML IV STA (12:29)
[2020-09-06] MEDS ORDERED: PANTOPRAZOLE 40 MG 10ML VIAL IV STA (12:29)
[2020-09-06] MEDS ORDERED: BELLADONNA ALK/PHENOBARBITAL 5 ML UDC PO ONE (12:30)
[2020-09-06] MEDS ORDERED: LIDOCAINE VISC 2% SOLN 15 ML UDC PO ONE (12:30)
[2020-09-06] MEDS ORDERED: MAGNESIUM/ALUMINUM/SIMETHICONE 30 ML UDC PO ONE (12:30)
[2020-09-06 12:54] LABS: BASOPHILS % 0.3 % (0.0-1.0); HEMATOCRIT 38.5 % (34.2-44.1); HEMOGLOBIN 13.4 g/dL (12.0-16.0); LYMPHOCYTES # (AUTO) 0.6 (1.0-3.2); LYMPHOCYTES % 18.5 % (18.0-39.1); MEAN CORPUSCULAR HEMOGLOBIN 28.9 pg (28-32); MEAN CORPUSCULAR HGB CONC 34.8 g/dL (31-35); MONOCYTES # (AUTO) 0.4 (0.2-0.8); MONOCYTES % 12.7 % (4.4-11.3); NEUTROPHILS # (AUTO) 2.2 (2.1-6.9); NEUTROPHILS % 68.2 % (38.7-80.0); PLATELET COUNT 192 x10e3/uL (140-360); RED BLOOD COUNT 4.64 x10e6/uL (3.6-5.1); RED CELL DISTRIBUTION WIDTH 11.7 % (11.7-14.4)
[2020-09-06 13:06] LABS: CLARITY,URINE CLEAR (CLEAR); COLOR,URINE YELLOW (YELLOW); KETONES,URINE NEGATIVE (NEGATIVE); LEUKOCYTE ESTERASE ,URINE NEGATIVE (NEGATIVE); NITRITE,URINE NEGATIVE (NEGATIVE); PREGNANCY TEST, URINE NEGATIVE (NEGATIVE); PROTEIN,URINE DIPSTICK NEGATIVE (NEGATIVE); URINE UROBILINOGEN 0.2 mg/dL (0.2 - 1)
[2020-09-06 13:16] LABS: ALANINE AMINOTRANSFERASE 21 IU/L (0-55); ALBUMIN 4.4 g/dL (3.5-5.0); ALBUMIN/GLOBULIN RATIO 1.2 (0.8-2.0); ALKALINE PHOSPHATASE 73 IU/L (40-150); AMYLASE 94 U/L (25-125); ANION GAP 12.5 mmol/L (8-16); BLOOD UREA NITROGEN 14 mg/dL (7-26); BUN/CREATININE RATIO 21 (6-25); CARBON DIOXIDE 23 mmol/L (22-29); CHLORIDE 106 mmol/L (98-107); CREATININE, SERUM 0.67 mg/dL (0.57-1.11); EST GLOMERULAR FILTRATION RATE > 60 ML/MIN (60-); GLUCOSE 89 mg/dL (74-118); LIPASE 41 U/L (8-78); MAGNESIUM 1.9 MG/DL (1.3-2.1); POTASSIUM 3.5 mmol/L (3.5-5.1); SODIUM 138 mmol/L (136-145)
[2020-09-06 13:20] LABS: BACTERIA,URINE RARE /HPF; EPITHELIAL CELLS,URINE RARE /LPF
[2020-09-06] MEDS ORDERED: PROMETHAZINE 12.5MG/ NACL 0.9% 12.5 MG/50 ML BAG IV ONE (14:00)
[2020-09-06] MEDS ORDERED: SODIUM CHLORIDE 0.9% 50ML 50 ML ONE (14:04)
[2020-09-06] MEDS ORDERED: IOPAMIDOL 370 MG/ML 200 ML INFUS..BTL INJ ONE (14:05)
== END 2020-09-06 15:23 | disposition home or self-care (01) ==
LOC: ER 12:28
DX: R10.31 Right lower quadrant pain (principal); R11.0 Nausea; M32.9 Systemic lupus erythematosus, unspecified
CPT/HCPCS: 36415; 74177; 80053; 81001; 81025; 82150; 83690; 83735; 85025; 87086; 99284; C9113; J2405; J2550; J7030; Q9967

== ENCOUNTER → 2020-09-28 | Day surgery (SDC) | payer BC ==
[2020-09-23 09:23] LABS: BASOPHILS % 0.3 % (0.0-1.0); EOSINOPHILS % 0.3 % (0.0-6.0); HEMOGLOBIN 13.2 g/dL (12.0-16.0); LYMPHOCYTES # (AUTO) 0.5 (1.0-3.2); LYMPHOCYTES % 13.5 % (18.0-39.1); MEAN CORPUSCULAR HEMOGLOBIN 28.7 pg (28-32); MEAN CORPUSCULAR HGB CONC 34.7 g/dL (31-35); MEAN CORPUSCULAR VOLUME 82.6 fL (81-99); MONOCYTES # (AUTO) 0.4 (0.2-0.8); MONOCYTES % 9.9 % (4.4-11.3); NEUTROPHILS % 75.7 % (38.7-80.0); PLATELET COUNT 187 x10e3/uL (140-360); RED CELL DISTRIBUTION WIDTH 11.8 % (11.7-14.4)
[~2020-09-28] MED LIST changes: +BENLYSTA400 MG INJ; +BUPIVACAINE HCL 0.5% INJ 30 ML VIAL INJ ONE; +CEFAZOLIN SOD 1 GM/NS 50ML 100 ML IV ONE; +CYMBALTA30 MG PO; +DEXAMETHASONE SOD PHOS INJ 4 MG/ML VIAL ONE; +FENTANYL CITRATE/PF 100MCG/2 ML INJ ONE; +GLYCOPYRROLATE INJ 0.2 MG/ML VIAL ONE; +KETOROLAC TROMETHAMINE 30 MG/ML VIAL ONE; +LIDOCAINE HCL 2% LOCAL INJ 5 ML SDV VIAL INJ ONE; +METOCLOPRAMIDE HCL 10 MG/2ML VIAL ONE; +MIDAZOLAM HCL 2 MG/2 ML VIAL ONE; +NEOSTIGMINE 1 MG/ML 10ML VIAL ONE; +ONDANSETRON HCL INJ 2MG/ML 2ML 2 MG/ML VIAL ONE; +PROPOFOL IV EMULSION 10 MG/ML 20 ML VIAL ONE; +ROCURONIUM BROMIDE 10 MG/ML 5ML VIAL IV ONE; +SEVOFLURANE INHAL SOLN 250 ML PEN BTL ONE; +SLYND4 MG PO
[2020-09-28 10:25] VITALS: BP 119/83
== END | disposition home or self-care (01) ==
LOC: OR 06:12
PROVIDERS: ATTEND Surgery
DX: K66.0 Peritoneal adhesions (postprocedural) (postinfection) (principal); M79.7 Fibromyalgia; M32.9 Systemic lupus erythematosus, unspecified; Z88.8 Allergy status to other drugs, medicaments and biological substances; Z01.812 Encounter for preprocedural laboratory examination; Z20.822 Contact with and (suspected) exposure to COVID-19
CPT/HCPCS: 36415; 44180; 81025; 84702; 85025; J0690; J1100; J1885; J2001; J2250; J2405; J2704; J2710; J2765; J3010; U0002

== ENCOUNTER 2022-07-19 08:29 | Outpatient (RCR) | payer BC ==
[~2022-07-19 08:29] MED LIST changes: -BUPIVACAINE HCL 0.5% INJ 30 ML VIAL INJ ONE; -CEFAZOLIN SOD 1 GM/NS 50ML 100 ML IV ONE; -DEXAMETHASONE SOD PHOS INJ 4 MG/ML VIAL ONE; -FENTANYL CITRATE/PF 100MCG/2 ML INJ ONE; -GLYCOPYRROLATE INJ 0.2 MG/ML VIAL ONE; -KETOROLAC TROMETHAMINE 30 MG/ML VIAL ONE; -LIDOCAINE HCL 2% LOCAL INJ 5 ML SDV VIAL INJ ONE; -METOCLOPRAMIDE HCL 10 MG/2ML VIAL ONE; -MIDAZOLAM HCL 2 MG/2 ML VIAL ONE; -NEOSTIGMINE 1 MG/ML 10ML VIAL ONE; -ONDANSETRON HCL INJ 2MG/ML 2ML 2 MG/ML VIAL ONE; -PROPOFOL IV EMULSION 10 MG/ML 20 ML VIAL ONE; -ROCURONIUM BROMIDE 10 MG/ML 5ML VIAL IV ONE; -SEVOFLURANE INHAL SOLN 250 ML PEN BTL ONE
== END 2022-08-15 ==
LOC: PT 08:29
PROVIDERS: ATTEND Specialist
DX: M22.2X1 Patellofemoral disorders, right knee (principal); S76.311D Strain of muscle, fascia and tendon of the posterior muscle group at thigh level, right thigh, subsequent encounter